=== PATIENT | female | born 1985 | race Caucasian/White ===

== ENCOUNTER 2022-04-29 17:41 | Outpatient (CLI) | payer BC, SELFPAY | END 2022-04-29 17:42 | disposition home or self-care (01) | LOC: LKVREF 05-06 08:57 | PROVIDERS: Visit Provider Nurse Practitioner Family | DX: B99.9 Unspecified infectious disease (principal) | CPT/HCPCS: 87070 ==

== ENCOUNTER 2024-03-27 09:03 | Outpatient (CLI) | payer BC, SELFPAY ==
--- NOTE | 2024-03-27 09:15 | CRLHL7_ITS ---
For Patients: As a result of the Century Cures Act, medical imaging exams and procedure reports are released immediately into your electronic medical record. You may view this report before your referring provider. If you have questions, please contact your health care provider. INDICATION: abnormal bleeding x 3 weeks COMPARISON: none TECHNIQUE: 2D alex scale and color Doppler images were acquired of the pelvis using a transabdominal and transvaginal approach. FINDINGS: Sonographic images demonstrate a normal size and smooth outer contour of the uterus. Uterus measures 8.1 cm in length by 4.1 cm in AP diameter by 4.6 cm in transverse dimension. The myometrium has a heterogeneous echotexture. Posterior uterine fibroids are present measuring 1.9 x 1.4 x 2.0 cm and 1.9 x 1.5 x 1.8 cm. Both of these fibroids are intramural and abut the posterior endometrium. The endometrium measures 3.5 millimeters. No endometrial fluid. The right ovary measures 2.8 x 1.7 x 2.8 cm in size and the left ovary measures 3.2 x 1.7 x 2.1 cm. The ovaries demonstrate normal arterial and venous blood flow on color Doppler analysis. There are no suspicious fluid collections within the cul-de-sac. Simple cyst left ovary measures 1.4 x 1.1 x 1.3 cm. Small cyst right ovary measures 1.1 x 1.1 x 1.0 cm. IMPRESSION: Posterior uterine fibroids measuring 2.0 cm and 1.9 cm. Adjacent endometrium measures 3.5 millimeters. Dictated by Mikey Daugherty MD @ 03/27/2024 11:56:02 AM (Electronically Signed)
== END 2024-03-27 09:04 | disposition home or self-care (01) ==
LOC: US 09:04
PROVIDERS: Visit Provider Obstetrics & Gynecology
DX: N93.9 Abnormal uterine and vaginal bleeding, unspecified (principal); D25.9 Leiomyoma of uterus, unspecified
CPT/HCPCS: 76830; 76856

== ENCOUNTER 2024-10-04 14:57 | Outpatient (CLI) | payer OTHER, SELFPAY | END 2024-10-04 14:58 | disposition home or self-care (01) | PROVIDERS: Visit Provider Physician Assistant Medical | DX: G47.9 Sleep disorder, unspecified (principal); Z13.228 Encounter for screening for other metabolic disorders; Z13.220 Encounter for screening for lipoid disorders; Z13.21 Encounter for screening for nutritional disorder; Z13.0 Encounter for screening for diseases of the blood and blood-forming organs and certain disorders involving the immune mechanism; Z13.29 Encounter for screening for other suspected endocrine disorder; Z11.4 Encounter for screening for human immunodeficiency virus [HIV]; Z11.59 Encounter for screening for other viral diseases | CPT/HCPCS: 80048; 80061; 82607; 82728; 83540; 83550; 84443; 86703; 86803 ==